=== PATIENT | female | born 1940 | race Caucasian/White ===

== ENCOUNTER 2016-09-23 09:38 | Outpatient (CLI) | payer MEDICARE, OTHER | END 2016-09-23 09:39 | disposition home or self-care (01) | LOC: NAVSJIPCSP 09:38 | PROVIDERS: ATTEND Internal Medicine | DX: E78.5 Hyperlipidemia, unspecified (principal); Z79.899 Other long term (current) drug therapy | CPT/HCPCS: 36415; 80061 ==

== ENCOUNTER 2016-12-23 08:03 | Outpatient (CLI) | payer MEDICARE, OTHER | END 2016-12-23 08:04 | disposition home or self-care (01) | LOC: NAVSJIPCSP 08:03 | PROVIDERS: ATTEND Internal Medicine | DX: E78.5 Hyperlipidemia, unspecified (principal); Z79.899 Other long term (current) drug therapy | CPT/HCPCS: 36415; 80061 ==

== ENCOUNTER 2017-04-08 09:46 | Outpatient (CLI) | payer MEDICARE, OTHER ==
[2017-04-08 12:48] LABS: Cardiac Risk 2.9 (Less than 4.5)
== END 2017-04-08 09:47 | disposition home or self-care (01) ==
LOC: NAVSJIPCSP 09:46
PROVIDERS: ATTEND Internal Medicine
DX: E78.5 Hyperlipidemia, unspecified (principal)
CPT/HCPCS: 36415; 80061

== ENCOUNTER 2017-10-19 10:37 | Outpatient (CLI) | payer MEDICARE, OTHER ==
[~2017-10-19 10:37] MED LIST: Iopamidol 370 76% 100 ML VIAL ONE
--- NOTE | 2017-10-19 16:15 | CT ---
CT ABDOMEN AND PELVIS WITH IV AND ORAL CONTRAST: Date: 10/19/17 HISTORY: Periumbilical pain. FINDINGS: Scarring and bronchiectasis are present at the lung bases. Small cysts arise from the cortex of the k idneys. Bowel is displaced by a very large complex cystic mass consisting of a dominant compartment o f homogeneous fluid density. This portion measures up to 21.6 cm length x 22.5 cm width x 11.3 cm dep th. It is favored to arise from the adnexa, although laterality is not discernible. Urinary bladder i s not well visualized and presumably compressed by the large mass. Uterus is not visualized and presu med surgically absent. There is calcification in the arterial structures. IMPRESSION: 1. Very large complex pelvic mass, presumed adnexal in origin. 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 Please c onsider gynecologic evaluation. 2. Atherosclerosis. POS: [facility]
== END 2017-10-19 10:38 | disposition home or self-care (01) ==
LOC: NAV CT 10:37
PROVIDERS: ATTEND Internal Medicine
DX: R10.33 Periumbilical pain (principal); I70.90 Unspecified atherosclerosis
CPT/HCPCS: 36415; 74177; 82565

== ENCOUNTER 2022-10-07 10:01 | Emergency (ER) | payer MEDICARE, OTHER | END 2022-10-07 12:58 | disposition home or self-care (01) | LOC: NAV ERS 10:01 | DX: S92.042A Displaced other fracture of tuberosity of left calcaneus, initial encounter for closed fracture (principal); E78.00 Pure hypercholesterolemia, unspecified; W17.89XA Other fall from one level to another, initial encounter | CPT/HCPCS: 28400 ==